=== PATIENT | male | born 1995 | race Caucasian/White ===

== ENCOUNTER 2019-06-26 12:19 | Emergency (ER) | payer BC ==
[~2019-06-26] VITALS: Ht 182.9 cm; Wt 79.8 kg
[2019-06-26 12:41] VITALS: Ht 182.9 cm; Wt 79.8 kg
[2019-06-26 13:52] LABS: BASOPHIL % 0.8 % (0-2); PLATELET COUNT 332 x10^3mcL (130-400); RED CELL DISTRIBUTION WIDTH 13.8 % (11.5-14.5)
[2019-06-26 14:09] LABS: CALCIUM 10.6 mg/dL (8.5-10.1); CARBON DIOXIDE 23.4 mmol/L (21-32); CHLORIDE SERUM 98 mmol/L (98-107); CREATININE SERUM 1.2 mg/dL (0.7-1.3); GFR1 > 60 mL/min; GLUCOSE SERUM 86 mg/dL (74-106); POTASSIUM SERUM 3.3 mmol/L (3.5-5.1); SODIUM SERUM 139 mmol/L (136-145)
[2019-06-26 14:14] LABS: ALBUMIN 5.3 g/dL (3.4-5.0); ALKALINE PHOSPHATASE 63 U/L (46-116); ALT/SGPT 32 U/L (16-63); AST/SGOT 18 U/L (15-37); BILIRUBIN TOTAL 2.5 mg/dL (0.20-1.00); CHOLESTEROL 174 mg/dL (<200); CHOLESTEROL/HDL RATIO 3.6; HDL CHOLESTEROL 49 mg/dL (40-60); LIPASE 107 IU/L (73-393); TOTAL PROTEIN, SERUM 8.4 g/dL (6.4-8.2); TRIGLYCERIDES 59 mg/dL (<150)
[2019-06-26 14:27] LABS: UA SPECIFIC GRAVITY 1.025 (1.005-1.035); microscopic required? YES; urine erythrocyte NEGATIVE (NEGATIVE)
[2019-06-26 14:38] LABS: AMPHETAMINE QUAL UR NONE DETECTED (See below)
[2019-06-26 14:40] LABS: FREE T4 1.44 ng/dL (0.76-1.46); FREE THYROXINE INDEX 4.8 ug/dL (1.4-4.5); T4(THYROXINE) 13.2 ug/dL (4.7-13.3)
[2019-06-26 15:25] LABS: T3 TOTAL 1.92 ng/mL
[2019-06-26 15:58] VITALS: BP 121/67
== END 2019-06-26 15:58 | disposition home or self-care (01) ==
LOC: ED 12:19
PROVIDERS: Specialist
DX: T67.5XXA Heat exhaustion, unspecified, initial encounter (principal); E87.6 Hypokalemia; H02.409 Unspecified ptosis of unspecified eyelid; X58.XXXA Exposure to other specified factors, initial encounter; Y93.89 Activity, other specified; Y92.89 Other specified places as the place of occurrence of the external cause; Y99.8 Other external cause status
CPT/HCPCS: 83880; 84439; G0480; J7030; Q0092

== ENCOUNTER 2019-06-27 08:05 | Emergency (ER) | payer BC ==
[~2019-06-27] VITALS: Ht 182.9 cm; Wt 78.0 kg
[2019-06-27 08:12] VITALS: Ht 182.9 cm; Wt 78.0 kg
[2019-06-27 10:08] VITALS: BP 118/73
== END 2019-06-27 10:08 | disposition home or self-care (01) ==
LOC: ED 08:05
DX: Z13.9 Encounter for screening, unspecified (principal)